=== PATIENT | male | born 1940 | race Caucasian/White ===

== ENCOUNTER 2023-08-11 11:00 | Day surgery (SDC) | payer MEDICARE, OTHER ==
[~2023-08-11] VITALS: Ht 185.4 cm; Wt 97.4 kg
[2023-08-11] VITALS (11 sets, daily range): BP systolic 104–187; BP diastolic 62–88; PULSE 63–80; RESP 12–65; TEMP 98.4; O2SAT 94–97
[2023-08-11] MEDS ORDERED: fentaNYL/PF 50MCG/1 ML 2ML syringe IV ONE (11:25)
[2023-08-11] MEDS ORDERED: MIDAZolam 1mg/ml 10ml vial IV ONE (11:25)
[2023-08-11] MEDS ORDERED: normal saline 1000ml 1,000 ML IV SCH (11:25)
[2023-08-11] MEDS ORDERED: APIX5TAB3 PO (11:27)
[2023-08-11] MEDS ORDERED: PANT40TA54 PO (11:27)
[2023-08-11] MEDS ORDERED: TRAV2.5D6 (11:27)
[2023-08-11] MEDS ORDERED: LOSA25TA41 PO (11:27)
[2023-08-11] MEDS ORDERED: LEVO25TA7 PO (11:27)
[2023-08-11] MEDS ORDERED: AMI200T (11:27)
[2023-08-11] MEDS ORDERED: CETI-194 PO (11:28)
[2023-08-11] MEDS ORDERED: MULT-1085 PO (11:28)
[2023-08-11] MEDS ORDERED: TRIM100T PO (11:28)
[2023-08-11] MEDS ORDERED: ASPI-1265 PO (11:28)
[2023-08-11] MEDS ORDERED: ATOR20TA66 PO (11:28)
[2023-08-11 12:21] LABS: BASOPHILS # (AUTO) 0.1 X10'3 (0-0.2); BASOPHILS % (AUTO) 0.8 % (0-1); EOSINOPHILS # (AUTO) 0.3 X10'3 (0-0.9); EOSINOPHILS % (AUTO) 3.9 % (0-6); HEMATOCRIT 40.7 % (42.0-52.0); HEMOGLOBIN 13.5 g/dl (14.0-17.9); LYMPHOCYTES # (AUTO) 0.8 X10'3 (1.1-4.8); MEAN CORPUSCULAR HEMOGLOBIN 29.9 PG (27.0-31.0); MEAN CORPUSCULAR HGB CONC 33.1 g/dL (33.0-36.5); MEAN CORPUSCULAR VOLUME 90.3 FL (78-98); MEAN PLATELET VOLUME 9.2 FL (7.4-10.4); MONOCYTES # (AUTO) 0.7 X10'3 (0-0.9); MONOCYTES % (AUTO) 9.4 % (2-12); NEUTROPHILS # (AUTO) 5.8 X10'3 (1.8-7.7); NEUTROPHILS % (AUTO) 74.9 % (42-75); PLATELET COUNT 247 X10'3 (140-440); RED BLOOD COUNT 4.51 X10'6 (4.70-6.10); RED CELL DISTRIBUTION WIDTH 14.4 % (11.5-14.5); WHITE BLOOD COUNT 7.7 X10'3 (4.5-11.0)
[2023-08-11 12:36] LABS: PROTHROMBIN TIME 11.1 SECONDS (9.0-12.0)
[2023-08-11 12:37] LABS: ALBUMIN 3.7 G/DL (3.4-5.0); ANION GAP 9 (8-16); BLOOD UREA NITROGEN 24 MG/DL (7-18); CALCIUM 8.9 MG/DL (8.5-10.1); CHLORIDE 99 MMOL/L (99-107); CREATININE 2.19 MG/DL (0.60-1.10); GLUCOSE 157 MG/DL (70-104); POTASSIUM 4.6 MMOL/L (3.5-5.1); SODIUM 131 MMOL/L (135-145); TOTAL CARBON DIOXIDE 22.6 MMOL/L (24-32); eCRCL 28 ML/MIN; eGFR 29 ML/MIN
== END 2023-08-11 14:40 | disposition home or self-care (01) ==
LOC: SSTAY O 11:00
PROVIDERS: ATTEND Student in an Organized Health Care Education/Training Program
DX: I48.91 Unspecified atrial fibrillation (principal); I48.92 Unspecified atrial flutter; E78.5 Hyperlipidemia, unspecified; E03.9 Hypothyroidism, unspecified; G47.30 Sleep apnea, unspecified; E11.22 Type 2 diabetes mellitus with diabetic chronic kidney disease; I12.9 Hypertensive chronic kidney disease with stage 1 through stage 4 chronic kidney disease, or unspecified chronic kidney disease; N18.9 Chronic kidney disease, unspecified; Z87.891 Personal history of nicotine dependence; Z86.73 Personal history of transient ischemic attack (TIA), and cerebral infarction without residual deficits; Z85.51 Personal history of malignant neoplasm of bladder; Z79.01 Long term (current) use of anticoagulants; Z79.82 Long term (current) use of aspirin; Z79.899 Other long term (current) drug therapy
CPT/HCPCS: 36415; 80048; 85025; 85610; 92960; 93005; J2250; J3010; J7030; A4620